=== PATIENT | female | born 1950 | race Caucasian/White ===

== ENCOUNTER 2019-03-07 17:14 | Observation (INO) | payer MEDICARE ==
[~2019-03-07] VITALS: Ht 162.6 cm; Wt 100.7 kg
--- NOTE | 2019-03-07 02:00 | NUR ---
PATIENT RECEIVED FROM ER. PATIENT IS AAOX3. PATIENT STATED SHE HAD BEEN HAVING MULTIPLE SYNCOPAL EPISODES, HIT HER FACE AND HEAD AT HOME. LEFT CHIN SCRATCHES NOTED FROM THE FALL. TELE IN PLACE NOTED. ORIENTED TO ROOM. CALL LIGHT WITHIN REACH. INSTRUCT PATIENT TO CALL FOR ASSISTANCE. BED ALARM ON. BED LOW/LOCKED. CONTINUE TO MONITOR.
[2019-03-07] MEDS ORDERED: OMEPRAZOLE20 M1 PO (17:53)
[2019-03-07] MEDS ORDERED: BACLOFEN10 MG PO (17:53)
[2019-03-07] MEDS ORDERED: AMLODIPINE BESY10 MG PO (17:53)
[2019-03-07] MEDS ORDERED: ULTRAM50 MG PO (17:53)
[2019-03-07] MEDS ORDERED: LISINOPRIL10 MG PO (17:53)
[2019-03-07] MEDS ORDERED: SODIUM CHLORIDE 0.9% 1000ML 1,000 ML IV STA (17:56)
--- NOTE | 2019-03-07 18:38 | Diagnostic Imaging Report ---
A single frontal view of the chest. HISTORY: Flu, fever, headaches, malaise, diarrhea COMPARISON: None available. DISCUSSION: Portable technique, limits sensitivity of the exam. Soft tissue attenuation partially limits sensitivity of the exam. Overlying artifacts. Tubes/Lines: None Lungs and pleura: Low lung volumes result in bibasilar vascular crowding, accentuation of the pulmonary interstitial markings, central pulmonary vasculature, and the cardiac silhouette. Allowing for these limitations, the findings are as follows: The left hemidiaphragm appears partially obscured by a confluent opacity. No definite pleural effusion or pneumothorax is identified. Heart and mediastinum: The cardiomediastinal silhouette appears unremarkable. Bones and soft tissues: Appear unremarkable, given this limited exam. IMPRESSION: Probable small left pleural effusion with adjacent atelectasis. When feasible, recommend routine upright PA and lateral chest radiographs performed in the Radiology Department for further evaluation. Signed by: Dr. Vlad Aguilar D.O., M.M.M. on 03/07/2019 6:34 PM
[2019-03-07 19:04] LABS: BASOPHILS # (AUTO) 0.1 (0.0-0.1); BASOPHILS % 0.7 % (0.0-1.0); EOSINOPHILS % 0.3 % (0.0-6.0); HEMATOCRIT 41.6 % (34.2-44.1); HEMOGLOBIN 14.4 g/dL (12.0-16.0); LYMPHOCYTES # (AUTO) 1.3 (1.0-3.2); LYMPHOCYTES % 11.1 % (18.0-39.1); MEAN CORPUSCULAR HGB CONC 34.6 g/dL (31-35); MEAN CORPUSCULAR VOLUME 83.7 fL (81-99); MONOCYTES # (AUTO) 0.5 (0.2-0.8); MONOCYTES % 4.2 % (4.4-11.3); NEUTROPHILS # (AUTO) 9.9 (2.1-6.9); NEUTROPHILS % 82.1 % (38.7-80.0); PLATELET COUNT 239 x10e3/uL (140-360); RED BLOOD COUNT 4.97 x10e6/uL (3.6-5.1); RED CELL DISTRIBUTION WIDTH 12.9 % (11.7-14.4)
[2019-03-07 19:22] LABS: ALBUMIN 2.9 g/dL (3.5-5.0); ALBUMIN/GLOBULIN RATIO 0.7 (0.8-2.0); ANION GAP 16.9 mmol/L (8-16); CALCIUM 9.3 mg/dL (8.4-10.2); CREATININE, SERUM 1.06 mg/dL (0.57-1.11)
[2019-03-07 19:26] LABS: POTASSIUM 2.9 mmol/L (3.5-5.1)
[2019-03-07 19:28] LABS: CREATINE KINASE MB 1.2 ng/mL (0-5.0)
--- NOTE | 2019-03-07 19:44 | Diagnostic Imaging Report ---
EXAMINATION: Head CT without contrast. HISTORY:Syncope, fever and headache. COMPARISON:None. TECHNIQUE: Multidetector axial images were obtained from the foramen magnum to the vertex without contrast. The images were reconstructed using brain and bone algorithms. Thin section brain images were reformatted into coronal and sagittal planes. Dose modulation, iterative reconstruction, and/or weight based adjustment of the mA/kV was utilized to reduce the radiation dose to as low as reasonably achievable. Intravenous contrast: None IMAGE QUALITY: Acceptable. FINDINGS: Skull/scalp: No lytic or blastic. lesions. No surgical changes. Parenchyma: Nonspecific few, scattered supratentorial white matter hypodensity are likely related to small vessel ischemic changes. No acute hemorrhage, mass or acute major vascular territorial infarct. Arteries: No density suggestive of thrombosis. Dural sinuses: No abnormal density suggestive of thrombosis. Ventricles: No hydrocephalus or displacement. Extra-axial spaces: No abnormal density. Brain volume: Normal for age. Craniocervical junction: No mass, Chiari malformation, or basilar invagination. Sella: No mass. Paranasal/mastoid sinuses: Imaged portions unremarkable. IMPRESSION: No acute intracranial abnormality. Mild supratentorial white matter microvascular ischemic changes. Signed by: Dr. Judy Nolan M.D. on 03/07/2019 7:41 PM
[2019-03-07] MEDS ORDERED: POTASSIUM CHLORIDE 10MEQ/100ML 200 ML IV ONE (20:30)
[2019-03-07] MEDS ORDERED: POTASSIUM CHLORIDE 20 MEQ TAB CR PO ONE (20:30)
[2019-03-07] MEDS ORDERED: CEFTRIAXONE SOD 1 GM/NS 50 ML 50 ML IV SCH (20:30)
[2019-03-07] MEDS ORDERED: SODIUM CHLORIDE 0.9% 1000ML 1,000 ML ONE (23:29)
[2019-03-07 23:30] LABS: BILIRUBIN,URINE SMALL (NEGATIVE); CLARITY,URINE CLOUDY (CLEAR); COLOR,URINE YELLOW (YELLOW); KETONES,URINE NEGATIVE (NEGATIVE); LEUKOCYTE ESTERASE ,URINE NEGATIVE (NEGATIVE); NITRITE,URINE NEGATIVE (NEGATIVE); PROTEIN,URINE DIPSTICK 2+ (NEGATIVE); URINE UROBILINOGEN 1 mg/dL (0.2 - 1)
[2019-03-07] MEDS ORDERED: SODIUM CHLORIDE 0.9% 1000ML 1,000 ML IV SCH (23:30)
[2019-03-07 23:39] LABS: AMPHETAMINES SCREEN,URINE NEGATIVE (NEGATIVE); BENZODIAZEPINES SCREEN,URINE NEGATIVE (NEGATIVE); PHENCYCLIDINE SCREEN,URINE NEGATIVE (NEGATIVE)
[2019-03-07 23:40] LABS: BACTERIA,URINE MANY /HPF; EPITHELIAL CELLS,URINE MODERATE /LPF; MUCUS,URINE MANY (RARE); RENAL EPITHELIAL CELLS,URINE FEW; TRANSITIONAL EPI CELLS,URINE FEW; WBC,URINE (MAN) 21-50 /HPF (0-5)
[2019-03-08] VITALS (9 sets, daily range): BP systolic 96–118; BP diastolic 51–60
[2019-03-08] MEDS ORDERED: ONDANSETRON HCL INJ 2MG/ML 2ML 2 MG/ML VIAL IV PRN (00:15)
[2019-03-08] MEDS ORDERED: KCL 20MEQ/.9 SOD CHL 1,000 ML IV ONE (00:15)
--- OUTSIDE RECORDS SUMMARY | 2019-03-08 00:26 | XMS REPORT ---
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 Allergies, Adverse Reactions, Alerts This patient has no known allergies or adverse reactions. Medications This patient has no known medications. Results Test Description Test Time Test Comments Text Results Atomic Results Result Comments CT BRAIN WO 2019-03-07 19:38:00 [facility] [address] [address] Patient Name: MALLORY ADAN MR #: [id number] : 1950 Age/Sex: 68/F Req #: [id number] Adm Physician: Ordered by: KERON MCCAIN SEED TESTER Report #: [id number] Location: ER Room/Bed: Procedure: [id number] CT/CT BRAIN WO Exam Date: 03/07/19 Exam Time: 1914 REPORT STATUS: Signed EXAMINATION: Head CT without contrast. HISTORY:Synco pe, fever and headache. COMPARISON:None. TECHNIQUE: Multidetector axial images were obtained from the foramen magnum to the vertex without contrast. The images were reconstructed using brain and bone algorithms. Thin section brain images were reformatted into coronal and sagittal planes. Dose modulation, iterative reconstruction, and/or weight based adjustment of the mA/kV was utilized to reduce the radiation dose to as low as reasonably achievable. Intravenous contrast: None IMAGE QUALITY: Acceptable. FINDINGS: Skull/scalp: No lytic or blastic. lesions. No surgical changes. Parenchyma: Nonspecific few, scattered supratentorial white matter hypodensity are likely related to small vessel ischemic changes. No acute hemorrhage, mass or acute major vascular territorial infarct. Arteries: No density suggestive of thrombosis. Dural sinuses: No abnormal density suggestive of thrombosis. Ventricles: No hydrocephalus or displacement. Extra-axial spaces: No abnormal density. Brain volume: Normal for age. Craniocervical junction: No mass, Chiari malformation, or basilar invagination. Sella: No mass. Paranasal/mastoid sinuses: Imaged portions unremarkable. IMPRESSION: No acute intracranial abnormality. Mild supratentorial white matter microvascular ischemic changes. Signed by: Dr. Judy Nolan M.D. on 03/07/2019 7:41 PM Dictated By: JUDY NOLAN MD 40 Transcribed By: GEORGE on 03/07/191940 COPY TO: KERON MCCAIN SEED TESTER CHEST SINGLE (PORTABLE) 2019-03-07 18:31:00 [address] [place] [address] Patient Name: MALLORY ADAN MR #: [id number] : 1950 Age/Sex: 68/F Req #: [id number] Adm Physician: Ordered by: JAY JAY TRIPATHI MD Report #: [id number] Location: ER Room/Bed: Procedure: [id number] DX/CHEST SINGLE (PORTABLE) Exam Date: 03/07/19 Exam Time: 1815 REPORT STATUS: Signed A single frontal view of the chest. HISTORY: Flu, fever, headaches, malaise, diarrhea COMPARISON: None available. DISCUSSION: Portable technique, limits sensitivity of the exam. Soft tissue attenuation partially limits sensitivity of the exam. Overlying artifacts. Tubes/Lines: None Lungs and pleura: Low lung volumes result in bibasilar vascular crowding, accentuation of the pulmonary interstitial markings, central pulmonary vasculature, and the cardiac silhouette. Allowing for these limitations, the findings are as follows: The left hemidiaphragm appears partially obscured by a confluent opacity. No definite pleural effusion or pneumothorax is identified. Heart and mediastinum: The cardiomediastinal silhouette appears unremarkable. Bones and soft tissues: Appear unremarkable, given this limited exam. IMPRESSION: Probable small left pleural effusion with adjacent atelectasis. When feasible, recommend routine upright PA and lateral chest radiographs performed in the R adiology Department for further evaluation. Signed by: Dr. Pierre Aguilar D.O., M.M.M. on 03/07/2019 6:34 PM Dictated By: PIERRE AGUILAR DO 33 Transcribed By: GEORGE on 03/07/191833 COPY TO: JAY JAY TRIPATHI MD
[2019-03-08] MEDS ORDERED: POTASSIUM CHLORIDE 10MEQ/100ML 100 ML ONE (00:42)
[2019-03-08] MEDS: CEFTRIAXONE SOD 1 GM/NS 50 ML 50 ML IV SCH ×2 (01:51→23:52)
[2019-03-08] MEDS: ACETAMINOPHEN 325 MG TAB PO PRN ×2 (02:22→16:51)
[2019-03-08 07:53] LABS: CREATINE KINASE 115 IU/L (29-168)
[2019-03-08] MEDS ORDERED: TRAMADOL HCL 50 MG TAB PO PRN (13:00)
[2019-03-08] MEDS: BACLOFEN 10 MG TAB PO SCH ×2 (13:39→20:35)
[2019-03-08] MEDS: TRAMADOL HCL 50 MG TAB PO PRN (13:39)
[2019-03-08] MEDS: LACTOBACILLUS ACIDOPHILUS CAPSULE PO SCH (16:51)
--- NOTE | 2019-03-08 19:20 | NUR ---
PATIENT RECEIVED. PATIENT IS AAOX3, RESTING IN BED. RESP EVEN AND UNLABORED. NO ACUTE DISTRESS NOTED. TELE IN PLACE NOTED. CALL LIGHT WITHIN REACH. INSTRUCT PATIENT TO CALL FOR ASSISTANCE. BED ALARM ON. BED LOW/LOCKED. CONTINUE TO MONITOR.
[2019-03-08] MEDS: HEPARIN SOD (PORCINE) 5,000 UNIT/ML VIAL SC SCH (20:35)
[2019-03-08] MEDS ORDERED: SODIUM CHLORIDE 0.9% 250ML 250 ML ONE (23:41)
[2019-03-09] VITALS (8 sets, daily range): BP systolic 85–115; BP diastolic 51–67
[2019-03-09] MEDS: ACETAMINOPHEN 325 MG TAB PO PRN ×2 (04:32→20:10)
[2019-03-09 05:31] LABS: BASOPHILS # (AUTO) 0.1 (0.0-0.1); BASOPHILS % 0.5 % (0.0-1.0); EOSINOPHILS % 0.2 % (0.0-6.0); HEMATOCRIT 37.5 % (34.2-44.1); HEMOGLOBIN 13.1 g/dL (12.0-16.0); LYMPHOCYTES # (AUTO) 1.5 (1.0-3.2); LYMPHOCYTES % 13.6 % (18.0-39.1); MEAN CORPUSCULAR HEMOGLOBIN 28.9 pg (28-32); MEAN CORPUSCULAR HGB CONC 34.9 g/dL (31-35); MEAN CORPUSCULAR VOLUME 82.8 fL (81-99); MONOCYTES # (AUTO) 0.4 (0.2-0.8); MONOCYTES % 3.5 % (4.4-11.3); NEUTROPHILS # (AUTO) 8.7 (2.1-6.9); NEUTROPHILS % 79.5 % (38.7-80.0); PLATELET COUNT 229 x10e3/uL (140-360); RED BLOOD COUNT 4.53 x10e6/uL (3.6-5.1); RED CELL DISTRIBUTION WIDTH 13.4 % (11.7-14.4)
[2019-03-09 05:57] LABS: ALANINE AMINOTRANSFERASE 61 IU/L (0-55); ALBUMIN 2.3 g/dL (3.5-5.0); ALBUMIN/GLOBULIN RATIO 0.6 (0.8-2.0); ALKALINE PHOSPHATASE 98 IU/L (40-150); ANION GAP 13.2 mmol/L (8-16); BLOOD UREA NITROGEN 12 mg/dL (7-26); BUN/CREATININE RATIO 14 (6-25); CALCIUM 8.4 mg/dL (8.4-10.2); CARBON DIOXIDE 21 mmol/L (22-29); CHLORIDE 100 mmol/L (98-107); CREATININE, SERUM 0.87 mg/dL (0.57-1.11); EST GLOMERULAR FILTRATION RATE > 60 ML/MIN (60-); GLUCOSE 124 mg/dL (74-118); POTASSIUM 3.2 mmol/L (3.5-5.1); SODIUM 131 mmol/L (136-145)
[2019-03-09 06:35] LABS: MAGNESIUM 2.6 MG/DL (1.3-2.1)
[2019-03-09 06:37] LABS: THYROID STIMULATING HORMONE 1.155 uIU/mL (0.350-4.940)
[2019-03-09] MEDS: PANTOPRAZOLE SOD 40 MG TABEC PO SCH (08:19)
[2019-03-09] MEDS: BACLOFEN 10 MG TAB PO SCH ×3 (08:26→20:38)
[2019-03-09] MEDS: LACTOBACILLUS ACIDOPHILUS CAPSULE PO SCH ×2 (08:26→16:12)
[2019-03-09] MEDS: HEPARIN SOD (PORCINE) 5,000 UNIT/ML VIAL SC SCH ×2 (08:26→20:39)
[2019-03-09] MEDS ORDERED: LISINOPRIL 10 MG TAB PO SCH (09:00)
[2019-03-09] MEDS ORDERED: PANTOPRAZOLE SOD 40 MG TABEC PO SCH (09:00)
[2019-03-09] MEDS ORDERED: POTASSIUM CHLORIDE 20 MEQ TAB CR PO ONE ×2 (09:30→13:00)
--- NOTE | 2019-03-09 12:50 | Diagnostic Imaging Report ---
EXAMINATION: PA and lateral views of the chest. COMPARISON: 03/07/2019 CLINICAL HISTORY: Fever DISCUSSION: The lungs are well-inflated. No focal airspace consolidation. No pleural effusion is evident on the lateral radiograph. Cardiomediastinal contour and pulmonary vasculature are within normal limits. No acute osseous abnormality. IMPRESSION: No acute cardiopulmonary abnormality. No consolidative pneumonia in this patient with history of fever. Signed by: Dr. Jonas Farmer M.D. on 03/09/2019 12:46 PM
[2019-03-09] MEDS ORDERED: ONDANSETRON HCL 4 MG ORAL DISINTEGRATING TAB PO PRN (13:15)
[2019-03-09] MEDS: TRAMADOL HCL 50 MG TAB PO PRN (15:41)
[2019-03-10] MEDS: CEFTRIAXONE SOD 1 GM/NS 50 ML 50 ML IV SCH (00:08)
[2019-03-10 00:47] VITALS: BP 105/57
[2019-03-10 04:42] VITALS: BP 94/52
--- NOTE | 2019-03-10 07:10 | NUR ---
report given to Tim walking rounds completed,
[2019-03-10 07:30] VITALS: BP 94/52
[2019-03-10 07:46] VITALS: BP 125/61
[2019-03-10 08:14] LABS: BASOPHILS # (AUTO) 0.1 (0.0-0.1); BASOPHILS % 0.5 % (0.0-1.0); EOSINOPHILS % 0.2 % (0.0-6.0); HEMOGLOBIN 12.8 g/dL (12.0-16.0); LYMPHOCYTES # (AUTO) 2.5 (1.0-3.2); LYMPHOCYTES % 22.7 % (18.0-39.1); MEAN CORPUSCULAR HEMOGLOBIN 29.3 pg (28-32); MEAN CORPUSCULAR HGB CONC 34.6 g/dL (31-35); MEAN CORPUSCULAR VOLUME 84.7 fL (81-99); MONOCYTES # (AUTO) 0.5 (0.2-0.8); MONOCYTES % 4.3 % (4.4-11.3); NEUTROPHILS # (AUTO) 7.4 (2.1-6.9); NEUTROPHILS % 67.6 % (38.7-80.0); PLATELET COUNT 233 x10e3/uL (140-360); RED BLOOD COUNT 4.37 x10e6/uL (3.6-5.1)
[2019-03-10] MEDS: BACLOFEN 10 MG TAB PO SCH ×2 (08:18→16:11)
[2019-03-10] MEDS: PANTOPRAZOLE SOD 40 MG TABEC PO SCH (08:18)
[2019-03-10] MEDS: LACTOBACILLUS ACIDOPHILUS CAPSULE PO SCH ×2 (08:18→16:11)
[2019-03-10] MEDS: HEPARIN SOD (PORCINE) 5,000 UNIT/ML VIAL SC SCH (08:26)
[2019-03-10 08:38] LABS: ANION GAP 12.7 mmol/L (8-16); BLOOD UREA NITROGEN 10 mg/dL (7-26); BUN/CREATININE RATIO 11 (6-25); CALCIUM 8.2 mg/dL (8.4-10.2); CARBON DIOXIDE 22 mmol/L (22-29); CHLORIDE 99 mmol/L (98-107); CREATININE, SERUM 0.92 mg/dL (0.57-1.11); EST GLOMERULAR FILTRATION RATE > 60 ML/MIN (60-); GLUCOSE 111 mg/dL (74-118); POTASSIUM 3.7 mmol/L (3.5-5.1); SODIUM 130 mmol/L (136-145)
[2019-03-10 09:07] LABS: BAND NEUTROPHILS % (MANUAL) 3 %; LYMPHOCYTES % (MANUAL) 20 % (19-48); MONOCYTES % (MANUAL) 5 % (3.4-9.0); NEUTROPHILS % (MANUAL) 71 % (40-74); PLATELET ESTIMATE ADEQUATE; PLATELET MORPHOLOGY COMMENT NORMAL; RBC MORPHOLOGY COMMENT NORMAL; TOXIC GRANULATION SLIGHT
[2019-03-10 11:55] VITALS: BP 99/58
[2019-03-10 16:01] VITALS: BP 116/47
[2019-03-10] MEDS: ACETAMINOPHEN 325 MG TAB PO PRN (16:11)
--- NOTE | 2019-03-10 16:15 | NUR ---
informed dr cardona of patients temp 100.4, patient asymptomatic and no complaints at this time, ok to discharge received
--- NOTE | 2019-03-10 19:14 | Discharge Summary ---
PRIMARY CARE DOCTOR: Shayne Jovel MD. FINAL DIAGNOSIS: Syncope due to severe dehydration due to viral syndrome. SECONDARY DIAGNOSES: 1. Hypokalemia. 2. Hyponatremia. 3. Hypertension. CONSULTANTS: None. PROCEDURES/STUDIES PERFORMED: Head CT, which was benign. HISTORY: Per [facility] and P. HOSPITAL COURSE: The patient was admitted with syncope. This is likely due to severe dehydration due to her viral syndrome. Her influenza was negative. The patient was aggressively hydrated. Her potassium was repleted. Now, the patient is afebrile for more than 24 hours now. Urine culture shows enterococcus, however, this was not a clean catch. Empirically, the patient was getting Rocephin which does not work for enterococcus and the patient defervesced on her own, therefore the fever is likely due to viral illness given her history. Currently, the patient is tolerating p.o. Her appetite is back. Her myalgia has resolved. The patient was seen and examined today. CONDITION ON DISCHARGE: Improved. DISCHARGE MEDICATIONS: Please see medication reconciliation form. Josselynching MD FELIPE Deluca/DANIEL /[id number] cc: [facility]
== END 2019-03-10 16:29 | disposition home or self-care (01) ==
LOC: ER 17:14 → INTOOBSV 03-08 00:22 → ERHOLD 03-08 00:22 → MED/SURG2 03-08 01:44
PROVIDERS: ADMIT Internal Medicine; ATTEND Internal Medicine
DX: B34.9 Viral infection, unspecified (principal); R55 Syncope and collapse; I10 Essential (primary) hypertension; K21.9 Gastro-esophageal reflux disease without esophagitis; M79.7 Fibromyalgia; Z96.653 Presence of artificial knee joint, bilateral; Z82.49 Family history of ischemic heart disease and other diseases of the circulatory system; Z88.5 Allergy status to narcotic agent; Z88.8 Allergy status to other drugs, medicaments and biological substances; I95.0 Idiopathic hypotension; E86.0 Dehydration; E87.6 Hypokalemia; E87.1 Hypo-osmolality and hyponatremia
CPT/HCPCS: 36415 ×4; 70450; 71045; 71046; 80048; 80053 ×2; 80307; 81001; 82550 ×2; 82553 ×2; 83605; 83690; 83735 ×2; 84443; 84484 ×2; 85025 ×3; 87040; 87086; 87186; 87400; 93005; 97116 ×2; 97139; 97162; 99284; G0378 ×3; J0696 ×3; J1644 ×3; J3480 ×2; J7030; J7050; S0164 ×2